=== PATIENT | female | born 1945 | race Caucasian/White ===

== ENCOUNTER 2018-11-22 04:14 | Observation (INO) ==
--- NOTE | 2018-11-16 09:57 | EKG Report ---
Test Performed on : 11/16/2018 09:53:25 AM Test Reason : pat Blood Pressure : / mmHG Vent. Rate : 083 BPM Atrial Rate : 083 BPM P-R Int : 128 ms QRS Dur : 088 ms QT Int : 358 ms P-R-T Axes : 015 068 040 degrees QTc Int : 420 ms Normal sinus rhythm. Normal ECG No previous ECGs available Confirmed by Ramirez BOB, Federico Holloway ([id number]) on 11/16/2018 7:48:31 PM
[2018-11-16 10:12] LABS: BASO# 0.06 X1000 (0.0-0.2); BASO% 1.2 % (0.0-0.8); EOS# 0.11 X1000 (0.0-0.7); EOS% 2.1 % (0.0-10.0); HEMOGLOBIN 14.1 g/dL (12.0-16.0); IMM GRAN# 0.05 X1000 (0.0-0.04); LYMPH# 0.85 X1000 (1.2-3.4); LYMPH% 16.5 % (20.5-51.1); MCH 29.1 PG (27-31); MCV 90.9 FL (81-99); MONO% 11.7 % (1.7-9.3); MPV 12.1 FL (7.4-10.4); NEUT# 3.47 X1000 (1.4-6.5); NEUT% 67.5 % (42.2-75.2); PLT 154 X1000 (130-400); RBC 4.84 XMIL (4.2-5.4); RDW 14.7 % (11.5-14.5); WBC 5.14 X1000 (4.8-10.8)
[2018-11-16 10:44] LABS: AGAP 11; BUN 12 mg/dL (8-22); CALCIUM 9.6 mg/dL (8.8-10.2); CHLORIDE 102 mmol/L (98-107); COSMO 280; CREATININE 0.8 mg/dL (0.5-0.9); ESTIMATED GFR > 60; GLUCOSE 83 mg/dL (70-104); POTASSIUM 3.8 mmol/L (3.5-5.1); SODIUM 141 mmol/L (136-145); TCO2 28 mmol/L (25-35)
[2018-11-22] MEDS ORDERED: LR 1,000 ML ONE ×2 (05:39→08:45)
[2018-11-22] MEDS ORDERED: KEFZOL 1 GM/D5W 1 GM/50 ML IVPB ONE (05:39)
[2018-11-22] MEDS ORDERED: SODIUM CHLORIDE 0.9% ONE (06:17)
[2018-11-22] MEDS ORDERED: SENSORCAINE 0.5%-EPI 1:200,000 ONE (06:17)
[2018-11-22] MEDS ORDERED: METROGEL-VAGINAL 0.75% GEL ONE (06:18)
[2018-11-22] MEDS ORDERED: D10W 500 ML ONE (06:18)
[2018-11-22] MEDS ORDERED: DIPRIVAN 1% ONE (06:29)
[2018-11-22] MEDS ORDERED: XYLOCAINE-MPF 2% ONE (06:29)
[2018-11-22] MEDS ORDERED: ZOFRAN ONE (07:30)
[2018-11-22] MEDS ORDERED: DECADRON ONE (07:30)
[2018-11-22] MEDS ORDERED: MORPHINE ONE (07:32)
--- NOTE | 2018-11-22 07:51 | HISTORY AND PHYSICAL ---
HISTORY: The patient is a 73-year-old female who we have been following in our office for some time, who has been having increasing problems with symptomatic pelvic organ prolapse. We have fitted her on 2 different occasions with pessaries, and we have been attempting this management for several years. She has now decided she is wishing to proceed with surgical intervention. The risks and benefits of an obliterative procedure with mid urethral sling were explained at length. She understands. She is wishing to proceed to surgical intervention. PAST MEDICAL HISTORY: Positive for hypertension and osteoporosis. SURGICAL HISTORY: Positive for abdominal hysterectomy with bilateral salpingo-oophorectomy. ALLERGIES: Are none. CURRENT MEDICATIONS: Estradiol 0.5 mg, Fosamax 70, Vasotec, and enalapril 20. SOCIAL HISTORY: Negative for tobacco, ETOH, or drugs. PHYSICAL EXAMINATION: GENERAL: BMI is noted to be 30. HEENT: Normocephalic, atraumatic. PERRLA. EOMI. No thyromegaly. CV: Regular rate and rhythm without murmur, gallop, or rub. PULMONARY: Clear to auscultation and percussion. ABDOMEN: Soft. : Shows POP-Q stage III prolapse with most of it being an anterior and apical defect. NEURO: Afocal. EXTREMITIES: Without clubbing, cyanosis, or edema. ASSESSMENT AND PLAN: Patient admitted at this time for obliterative procedure with mid urethral sling. The risks and benefits were the discussed with this. I have discussed with the family also my unpreparedness of this, this morning because it was not on my schedule. This history and physical is actually dictated after speaking with them and pulling up the electronic health record. I have also performed a quick written procedure so that we can proceed towards surgery at this point. cc: Kumar Salomon MD
[2018-11-22] MEDS ORDERED: TORADOL ONE (07:56)
[2018-11-22] MEDS ORDERED: LASIX ONE (07:57)
--- NOTE | 2018-11-22 09:53 | OPERATIVE NOTE ---
PROCEDURE DATE: 11/22/2018 PREOPERATIVE DIAGNOSIS: Pelvic organ prolapse. POSTOPERATIVE DIAGNOSIS: Pelvic organ prolapse. PROCEDURE: Anterior and posterior compartment defect repair, enterocele repair, mid urethral sling with Obtryx. SURGEON: Dr. Serge Salomon. ANESTHESIA: General. ESTIMATED BLOOD LOSS: 50 mL. HISTORY: The patient is a 73-year-old female with worsening pelvic organ prolapse who we have been managing with pessary over the last several years. She has undergone 2 fittings and has tried several pessaries and is now wishing to proceed to surgical correction. She was initially scheduled for colpectomy; however, with the patient asleep, it was decided that an aggressive anterior and posterior compartment defect repair would be corrective. So, we proceeded down that fashion. OPERATIVE FINDING: Patient is found to have POP-Q stage 3 prolapse. She had a band of apical support in the left angle region and, so, because of this, the decision was made to proceed only with an aggressive anterior-posterior defect repair. The patient was found to have an enterocele that had developed and, therefore, this was closed in the typical fashion for enterocele repair. OPERATIVE PROCEDURE: The patient was taken to the operating room and placed in supine position. After adequate general anesthesia obtained, she is placed in candy cane stirrups and her vagina and perineum was prepped and draped in the usual fashion. The defect was identified anteriorly, and we grasped this in the midline with 2 Allis clamps. Upon trying to continue with eversion of the vagina, we had a band of tissue going to the left vaginal apex in the angle that was very good in terms of support, so, because of this, the decision was made to leave this area like this and only perform an anterior and posterior defect repair aggressively. Starting in the anterior compartment, we injected approximately 40-50 mL of 0.25% Marcaine with epinephrine, diluted 50% with normal saline. We did this for hydrodissection as well as pain management. Sagittal incision was made and sharp and blunt dissection was utilized to dissect the bladder off the anterior portion of the uterus. We did this all the way from the urethrovesical neck all the way to the vaginal apex. Upon doing this, we then plicated across the midline with interrupted 2.0 Vicryl ligatures to help correct the defect. After doing this, we then we removed approximately 3 to 4 cm of vaginal mucosa from both sides and then closed the anterior compartment incision with a running 2.0 Vicryl ligature. This gave us excellent support anteriorly. We then turned our attention towards the posterior compartment. We grasped the defect in the posterior compartment and did an injection of another 30-40 mL of the same anesthetic solution. We then performed a midline incision and dissected again up to the apex of the vagina. The patient was found to have approximately a 4 to 5 cm enterocele developing in this area. We did not open the enterocele. Instead, we plicated across this midline with interrupted Tycron sutures at several layers. We did this at the apex of the vagina as well to help give further support to that area. We then proceeded down to the perineal body and completed our vaginal dissection in this area. We then trimmed approximately 2 to 3 cm posteriorly, and we then began with plication across the midline in the posterior compartment with interrupted 2.0 Vicryl ligatures. Upon doing this, we then closed the vaginal incision with a running 2.0 Vicryl ligature. We then turned our attention towards placement of the sling. The urethra was grasped proximally and distally with Allis clamps and another 8-10 mL of the same anesthetic solution was injected for hydrodissection. A sagittal incision was made and Metzenbaum scissors were utilized to dissect up towards the 10 o'clock and 2 o'clock position of the ischial pubic ramus. Based on the bony landmarks, as well as the insertion of the abductor longus, a stab incision was initially made on the left-hand side. The halo device was introduced through this incision to the pump press operator's finger and then the needle was directed out. The mesh was attached to it. It was retracted back through the skin, and we then turned our attention towards the other side and performed the same exact procedure on the other side. After completion of this, we then introduced a cystoscope and filled the bladder approximately 300 mL. Plication of the bladder in the midline made ureteral orifice identification somewhat difficult on the left-hand side as it was on the lateral side of the ridge on the left side. The right side was easily seen. Both ureters were effluxing urine. There was no evidence of any abnormalities within the bladder. No evidence of any mesh. Cystoscope was removed. A Eloise clamp was placed in the mid urethral position. The tape was brought up to the Eloise clamp. The blue tag was excised and the sheaths were easily removed. There was no tension on the mesh whatsoever. The mid urethral incision was closed with a running 2.0 Vicryl ligature. Castellano catheter was placed. Output was clear. A vaginal pack was placed x1. Sponge count, instrument count, needle counts correct x3. Packs and drains were Castellano. The patient was awakened and taken to the recovery room with vital signs stable. cc: Kumar Salomon MD
[2018-11-22] MEDS: LR 1,000 ML IV SCH ×2 (10:15→18:49)
[2018-11-22] MEDS ORDERED: NORCO-5 PO PRN (10:19)
[2018-11-22] MEDS ORDERED: ZOFRAN ODT PO PRN (10:19)
[2018-11-22] MEDS: COLACE PO SCH ×2 (12:01→21:42)
[2018-11-22] MEDS ORDERED: COLACE ONE (12:02)
[2018-11-22] MEDS ORDERED: MELATONIN PO SCH (21:00)
[2018-11-22] MEDS: PERIDEX MT SCH (21:42)
[2018-11-22] MEDS: TORADOL IV SCH (21:42)
[2018-11-23] MEDS: TORADOL IV SCH ×2 (02:43→08:16)
[2018-11-23] MEDS: LR 1,000 ML IV SCH (05:39)
[2018-11-23] MEDS: PRED FORTE 1% OPH SUSPENSION BOTH EYES SCH ×2 (05:39→08:16)
[2018-11-23] MEDS: VASOTEC PO SCH ×2 (05:39→08:17)
--- NOTE | 2018-11-23 07:24 | DISCHARGE SUMMARY ---
ADMISSION DATE: 11/22/2018 DISCHARGE DATE: 11/23/2018 PRINCIPAL DIAGNOSIS: Pelvic organ prolapse. PROCEDURE: Anterior and posterior compartment defect repair, enterocele repair, mid urethral sling with Obtryx. HISTORY: The patient is a 73-year-old female that we have been managing with pessary for some time, who was admitted for surgical intervention after desired to proceed to surgery. OPERATIVE FINDINGS: POP-Q stage III prolapse. HOSPITAL COURSE: The patient was maintained in the PACU in her postoperative course for the first 6 to 8 hours and during that time, the patient's Castellano catheter was removed. When I saw the patient postoperatively in the outpatient surgery area, she was doing well with no problems when the catheter was in. However, during the afternoon, the Castellano has been removed and the vaginal pack was not removed. She has struggled with voiding dysfunction and has had some distention of her bladder during this postoperative period. This morning, she is still not voiding well and having elevated residuals. The vaginal pack has been removed by nursing services on the 4th floor. I have discussed this with the patient. We will be sending her home with a Castellano catheter. The patient is being discharged home with instructions for follow up on Tuesday for a voiding trial at that time. DISCHARGE MEDICATIONS: [place] 5. DISCHARGE INSTRUCTIONS: She is instructed on regular diet and decreased activity. cc: Kumar Salomon MD
[2018-11-23 07:32] VITALS: BP 141/63
[2018-11-23] MEDS: PERIDEX MT SCH (08:15)
[2018-11-23] MEDS: COLACE PO SCH (08:16)
== END 2018-11-23 09:06 | disposition home or self-care (01) ==
LOC: SURHOLD 04:14 → INTOOBSV 04:14 → 4N 17:47
PROVIDERS: ADMIT Obstetrics & Gynecology; ATTEND Obstetrics & Gynecology
PROC: GY.CYST (2018-11-22 07:21)
CPT/HCPCS: 80048; 85025; 88304; 93005; 93010; 94761; 94799; A9270; C1771; J0690; J1100; J1885; J1940; J2270; J2405; J7120